=== PATIENT | female | born 1995 | race Asian ===

== ENCOUNTER 2022-11-29 09:13 | Inpatient (IN) | payer OTHER ==
[2022-11-29] MEDS ORDERED: BUTORPHANOL TARTRATE 1 MG/ML VIAL IVPB PRN (10:07)
[2022-11-29 10:46] LABS: INR 0.97 (0.83-1.09); PROTHROMBIN TIME (PATIENT) 11.3 SEC (9.7-13.0)
[2022-11-29 10:48] LABS: ACTIVATED PTT 25.8 SECONDS (25.2-36.5)
[2022-11-29 10:52] VITALS: BMI 38.2
[2022-11-29 10:59] LABS: BASO % 0.2 % (0-2.0); EOS % 0.9 % (0-4.5); HEMATOCRIT 30.9 % (32.4-45.2); LYMPH % 25.3 % (8-40); MCH 27.9 pg (25.7-33.7); MCHC 32.5 g/dl (32.0-36.0); MEAN CELL VOLUME 85.7 fl (80-96); MONO % 5.2 % (3.8-10.2); NEUT % 68.4 % (42.8-82.8); PLATELET COUNT 194 10^3/uL (134-434); RDW 13.7 % (11.6-15.6); WHITE BLOOD COUNT 9.8 K/mm3 (4.0-10.0)
[2022-11-29] MEDS ORDERED: MISOPROSTOL 200 MCG TABLET PR SCH (11:00)
[2022-11-29] MEDS ORDERED: MISOPROSTOL 100 MCG TABLET PR SCH (11:00)
[2022-11-29 11:32] LABS: POTASSIUM 3.9 mmol/L (3.5-5.1)
[2022-11-29 11:33] LABS: CALCIUM 8.7 mg/dL (8.5-10.1)
[2022-11-29 11:34] LABS: BLOOD UREA NITROGEN 6.2 mg/dL (7-18)
[2022-11-29 11:37] LABS: CREATININE 0.5 mg/dL (0.55-1.3)
[2022-11-29] MEDS ORDERED: MISOPROSTOL 25 MCG TABLET (COMPOUNDED BY PHARMACY) PO ONE (11:49)
[2022-11-29] MEDS ORDERED: ONDANSETRON 4 MG/2 ML VIAL IVPB PRN (11:51)
[2022-11-29] MEDS ORDERED: OXYTOCIN 30 UNITS in 0.9% NS 30 UNIT/500 ML INFUS.BAG IVPB SCH (12:00)
[2022-11-29] MEDS ORDERED: FENTANYL/BUPIVACAINE/NS/PF - PCEA - 50 ML DISP.SYRIN EP ONE ×2 (12:08→17:30)
[2022-11-29] MEDS ORDERED: OXYTOCIN 30 UNITS in 0.9% NS 30 UNIT/500 ML INFUS.BAG IVPB ONE (12:09)
[2022-11-29] MEDS ORDERED: FENTANYL CITRATE/PF 50 MCG/ML VIAL ONE (13:00)
[2022-11-29] MEDS ORDERED: BUPIVACAINE HCL/PF 0.25% (2.5MG/ML) 10 ML VIAL ONE (13:01)
[2022-11-29] MEDS ORDERED: LIDO 2%/EPI 1:200000 PRESRVFRE (20 ML SDVIAL) ONE (13:01)
[2022-11-29] MEDS ORDERED: NALOXONE HCL 0.4 MG/ML VIAL IVPUSH PRN (13:04)
[2022-11-29] MEDS ORDERED: FENTANYL/BUPIVACAINE/NS/PF - PCEA - 50 ML DISP.SYRIN EP SCH (13:15)
[2022-11-29] MEDS ORDERED: ACETAMINOPHEN 325 MG TABLET (FP) PO PRN (19:21)
[2022-11-29] MEDS ORDERED: BISACODYL 10 MG SUPP.RECT RC PRN (19:21)
[2022-11-29] MEDS ORDERED: oxyCODONE HCL 5 MG TABLET PO PRN (19:21)
[2022-11-29] MEDS ORDERED: METHYLERGONOVINE MALEATE 0.2 MG/1 ML AMP IM PRN (19:21)
[2022-11-29] MEDS ORDERED: BENZOCAINE 28 GM HEMORRHOIDAL OINTMENT TP PRN (19:21)
[2022-11-29] MEDS ORDERED: WITCH HAZEL 50% (TUCKS) 40 PAD/JAR PAD TP PRN (19:21)
[2022-11-29] MEDS ORDERED: BENZOCAINE 20% 57 GM BOTTLE TP PRN (19:21)
[2022-11-29] MEDS ORDERED: OXYTOCIN 20 UNITS in 0.9% NS 20 UNIT/1,000 ML INFUS.BAG IV SCH (19:30)
[2022-11-29] MEDS ORDERED: IBUPROFEN 600 MG TABLET (FP) PO ONE (20:26)
[2022-11-29] MEDS: IBUPROFEN 600 MG TABLET (FP) PO PRN (20:30)
[2022-11-29 20:59] LABS: CORD BASE EXCESS -4.7 mmol/L (0-2); CORD HCO3 20.6 mmHg (20-29); CORD pH 7.34 (7.14-7.44)
[2022-11-29 20:59] LABS: CORD BASE EXCESS -8.9 mmol/L (0-2); CORD HCO3 17.3 mmHg (20-29); CORD PCO2 38.4 mmHg (30-78); CORD pH 7.271 (7.14-7.44)
[2022-11-30] MEDS: IBUPROFEN 600 MG TABLET (FP) PO PRN ×4 (01:58→21:26)
[2022-11-30 08:04] LABS: BASO % 0.1 % (0-2.0); EOS % 0.3 % (0-4.5); HEMATOCRIT 26.7 % (32.4-45.2); HEMOGLOBIN 8.5 GM/dL (10.7-15.3); LYMPH % 16.3 % (8-40); MCH 27.7 pg (25.7-33.7); MEAN CELL VOLUME 86.5 fl (80-96); MEAN PLT VOLUME 10.6 fl (7.5-11.1); MONO % 6.2 % (3.8-10.2); NEUT % 77.1 % (42.8-82.8); PLATELET COUNT 154 10^3/uL (134-434); RBC 3.08 M/mm3 (3.60-5.2); RDW 13.6 % (11.6-15.6); WHITE BLOOD COUNT 11.5 K/mm3 (4.0-10.0)
[2022-11-30] MEDS: FERROUS SO4 325 MG TABLET (FP) PO SCH ×3 (09:14→16:54)
[2022-11-30] MEDS: PRENATAL VITAMINS W/ FOLIC ACID TABLET (FP) PO SCH (09:14)
[2022-11-30 21:25] VITALS: RESP 18
[2022-11-30] MEDS ORDERED: SENNOSIDES/DOCUSATE COMBO (SENNA PLUS) TABLET (UD) PO PRN (22:00)
[2022-12-01] MEDS: IBUPROFEN 600 MG TABLET (FP) PO PRN ×2 (06:08→11:50)
[2022-12-01] MEDS: FERROUS SO4 325 MG TABLET (FP) PO SCH ×2 (08:12→11:50)
[2022-12-01] MEDS: PRENATAL VITAMINS W/ FOLIC ACID TABLET (FP) PO SCH (10:10)
[2022-12-01 10:14] VITALS: BP 101/67; PULSE 89; TEMP 98.4
== END 2022-12-01 12:50 | disposition home or self-care (01) | DRG 560 ==
LOC: JDEL 09:13 → JLDR 09:55 → J3W 22:26
PROVIDERS: ADMIT Obstetrics & Gynecology; ATTEND Obstetrics & Gynecology
PROC: 10E0XZZ Delivery of Products of Conception, External Approach (ICD-10-PCS; principal; 2022-11-29)
DX: O41.03X0 Oligohydramnios, third trimester, not applicable or unspecified (principal); Z3A.38 38 weeks gestation of pregnancy; Z37.0 Single live birth
CPT/HCPCS: 36415; 36600; 80048; 82803; 85025; 85610; 85730; 86780; 86850; 86900; 86901